=== PATIENT | female | born 1935 | race Caucasian/White ===

== ENCOUNTER 2018-08-10 10:04 | Inpatient (IN) ==
[2018-08-10] MEDS ORDERED: guaiFENesin/DM ER 600-30 MG TABLET PO PRN (13:08)
[2018-08-10] MEDS ORDERED: diphenhydrAMINE CAP 25 MG CAPSULE PO PRN (13:08)
[2018-08-10] MEDS ORDERED: MAGNESIUM SULF RIDER 2 GM in PREMIX 1 EACH IV PRN (13:08)
[2018-08-10] MEDS ORDERED: ONDANSETRON 4 MG/2 ML VIAL IV PRN (13:08)
[2018-08-10] MEDS ORDERED: MORPHINE 4 MG/1 ML VIAL IV PRN (13:08)
[2018-08-10] MEDS ORDERED: POTASSIUM CHLORIDE 20 MEQ TABLET PO PRN (13:08)
[2018-08-10] MEDS ORDERED: PROMETHAZINE 25 MG TABLET PO PRN (13:08)
[2018-08-10] MEDS ORDERED: MAGNESIUM SULF RIDER 4 GM in PREMIX 1 EACH IV PRN (13:08)
[2018-08-10] MEDS ORDERED: BISACODYL 5 MG TABLET PO PRN (13:08)
[2018-08-10] MEDS ORDERED: DIGOXIN 0.5 MG/2 ML AMP IV ONE (13:42)
[2018-08-10 13:58] LABS: Basophils % 0.2 % (0.0-0.8); Hematocrit 41.8 VOL% (35.7-47.0); Hemoglobin 13.8 GM/DL (12.0-16.0); Immature Granulocytes % 1.5 %; Immature Granulocytes Absolute 0.18 #; Lymphocytes # 0.5 10*3/uL (1.4-4.0); Lymphocytes % 4.3 % (21.3-54.2); Mean Corpuscular Hemoglobin 30 PG (27-34); Mean Corpuscular Volume 89.9 FL (87-102); Mean Platelet Volume 10.1 FL (9.6-12.0); Monocytes # 1.4 10*3/uL (0.11-0.8); Monocytes % 12.3 % (1.7-12.7); Neutrophils # 9.5 10*3/uL (1.4-7.4); Neutrophils % 81.7 % (38.7-73.9); Platelet Count 217 T/CUMM (130-400); Red Blood Count 4.65 MC/CUMM (3.8-5.5); Red Cell Distribution Width 14.1 % (9.3-17.3); White Blood Count 11.7 T/CUMM (4-12)
[2018-08-10] MEDS ORDERED: dilTIAZem Drip 125 MG/125 ML PREMIX IV SCH (14:00)
[2018-08-10 14:20] LABS: Albumin 1.9 G/DL (3.4-5.0); Calcium 8.8 MG/DL (8.5-10.1); Osmolality,Calculated 264.1 MOS/KG (273-304); Potassium 4.4 MMOL/L (3.5-5.1); Total Protein 6.3 G/DL (6.4-8.3)
[2018-08-10 14:23] LABS: Troponin I < 0.015 NG/ML (0.00-0.045)
[2018-08-10] MEDS ORDERED: PHENYLEPHRINE 50 MG/5 ML VIAL IV PRN (14:27)
[2018-08-10] MEDS ORDERED: PHENYLEPHRINE DRIP 40 MG/250 ML PREMIX IV PRN (14:30)
[2018-08-10] MEDS ORDERED: AMIODARONE INJ 450 MG in DEXTROSE 5% 241 ML IV SCH ×2 (15:00→16:00)
[2018-08-10 15:56] LABS: Band Neutrophils 2 % (0-10); Lymphocytes 4 % (20-55); Segmented Neutrophils 81 % (50-85); Total Cells Counted 100
[2018-08-10 15:57] LABS: Burr Cells Few; Hypochromasia Slight
[2018-08-10 15:58] LABS: Platelet Estimate Adequate
[2018-08-10] MEDS ORDERED: AMIODARONE INJ 150 MG in DEXTROSE 5% 100 ML IV ONE (15:59)
[2018-08-10 16:04] LABS: Risk Ratio 4.46; Thyroid Stimulating Hormone 1.19 uIU/ml (0.358-3.74); VLDL CHOLESTEROL 13.2 MG/DL
[2018-08-10] MEDS: FUROSEMIDE 40 MG/4 ML VIAL IV SCH (16:55)
[2018-08-11] MEDS ORDERED: DIGOXIN 0.5 MG/2 ML AMP IV ONE ×2 (00:01→12:41)
[2018-08-11] MEDS: AMIODARONE INJ 450 MG in DEXTROSE 5% 241 ML IV SCH ×2 (00:35→16:08)
[2018-08-11] MEDS: dilTIAZem Drip 125 MG/125 ML PREMIX IV SCH ×3 (00:53→20:02)
[2018-08-11 05:31] LABS: Basophils % 0.3 % (0.0-0.8); Hematocrit 39.6 VOL% (35.7-47.0); Hemoglobin 13.3 GM/DL (12.0-16.0); Immature Granulocytes % 5.3 %; Immature Granulocytes Absolute 0.54 #; Lymphocytes # 0.5 10*3/uL (1.4-4.0); Lymphocytes % 5.3 % (21.3-54.2); Mean Corpuscular HGB Conc 33.6 GM/DL (32-36); Mean Corpuscular Hemoglobin 30 PG (27-34); Mean Corpuscular Volume 88.2 FL (87-102); Mean Platelet Volume 10.2 FL (9.6-12.0); Monocytes # 1.5 10*3/uL (0.11-0.8); Monocytes % 14.7 % (1.7-12.7); Neutrophils # 7.7 10*3/uL (1.4-7.4); Neutrophils % 74.4 % (38.7-73.9); Platelet Count 184 T/CUMM (130-400); Red Blood Count 4.49 MC/CUMM (3.8-5.5); Red Cell Distribution Width 13.8 % (9.3-17.3); White Blood Count 10.3 T/CUMM (4-12)
[2018-08-11 05:49] LABS: Calcium 8.5 MG/DL (8.5-10.1); Osmolality,Calculated 266.7 MOS/KG (273-304); Potassium 3.9 MMOL/L (3.5-5.1)
[2018-08-11 06:10] LABS: Band Neutrophils 4 % (0-10); Lymphocytes 2 % (20-55); Segmented Neutrophils 82 % (50-85); Total Cells Counted 100
[2018-08-11 06:11] LABS: Hypochromasia 1+; Microcytosis Slight; Platelet Estimate Adequate
[2018-08-11 06:31] LABS: Apearance,Urine CLEAR (Clear); Bacteria,Urine Occasional /HPF (Few); Bilirubin,Urine Negative (Negative); Blood, Urine Moderate mg/dL (Negative); Glucose,Urine (UA) Negative (Negative); Ketones,Urine Negative (Negative); Mucus,Urine Occasional /LPF (Occasional); Nitrite,Urine Negative (Negative); Protein,Urine Negative; RBC,Urine 7 /HPF (0-4); Squamous Epithelial Cell,Urine Occasional /HPF (0-10); Urine Color Yellow (Yellow); Urine Specific Gravity 1.013 (1.001-1.035); WBC,Urine 1 /HPF (0-6)
[2018-08-11] MEDS ORDERED: ACETAMINOPHEN 325 MG TABLET PO PRN (07:46)
[2018-08-11] MEDS: FUROSEMIDE 40 MG/4 ML VIAL IV SCH ×2 (08:15→17:41)
[2018-08-11] MEDS: PANTOPRAZOLE 40 MG TABLET PO SCH (08:30)
[2018-08-11] MEDS: ASPIRIN EC 81 MG TABLET PO SCH (08:30)
[2018-08-11] MEDS: APIXABAN 5 MG TABLET PO SCH ×2 (08:30→20:25)
[2018-08-11] MEDS: POTASSIUM CHLORIDE 20 MEQ TABLET PO SCH ×2 (09:16→20:25)
[2018-08-11] MEDS: ASCORBIC ACID 500 MG TABLET PO SCH ×2 (09:16→20:25)
[2018-08-11] MEDS: ALUMINUM/MAGNES/SIMETH MAX STR 30 ML UDCUP PO PRN (10:28)
[2018-08-11] MEDS ORDERED: AMIODARONE INJ 150 MG in DEXTROSE 5% 100 ML IV ONE (14:21)
[2018-08-11] MEDS: PHENYLEPHRINE DRIP 40 MG/250 ML PREMIX IV PRN (16:09)
[2018-08-12] MEDS: dilTIAZem Drip 125 MG/125 ML PREMIX IV SCH ×3 (02:36→11:38)
[2018-08-12 04:01] LABS: Calcium 8.2 MG/DL (8.5-10.1); Osmolality,Calculated 269.4 MOS/KG (273-304); Potassium 3.8 MMOL/L (3.5-5.1)
[2018-08-12] MEDS: PHENYLEPHRINE DRIP 40 MG/250 ML PREMIX IV PRN ×3 (05:21→21:31)
[2018-08-12] MEDS: AMIODARONE INJ 450 MG in DEXTROSE 5% 241 ML IV SCH ×3 (07:44→22:57)
[2018-08-12] MEDS: FUROSEMIDE 40 MG/4 ML VIAL IV SCH ×2 (07:45→16:43)
[2018-08-12] MEDS: ASCORBIC ACID 500 MG TABLET PO SCH ×2 (08:04→20:19)
[2018-08-12] MEDS: ASPIRIN EC 81 MG TABLET PO SCH (08:04)
[2018-08-12] MEDS: DOCUSATE SODIUM 100 MG CAPSULE PO PRN (08:04)
[2018-08-12] MEDS: PANTOPRAZOLE 40 MG TABLET PO SCH (08:04)
[2018-08-12] MEDS: POTASSIUM CHLORIDE 20 MEQ TABLET PO SCH ×2 (08:05→20:19)
[2018-08-12] MEDS: APIXABAN 5 MG TABLET PO SCH ×2 (08:05→20:19)
[2018-08-12] MEDS: POLYETHYLENE GLYCOL POWDER 17 GM PACK PO SCH (09:10)
[2018-08-13] MEDS: ALUMINUM/MAGNES/SIMETH MAX STR 30 ML UDCUP PO PRN (00:31)
[2018-08-13] MEDS: PHENYLEPHRINE DRIP 40 MG/250 ML PREMIX IV PRN ×2 (04:22→17:43)
[2018-08-13] MEDS: dilTIAZem Drip 125 MG/125 ML PREMIX IV SCH ×4 (04:23→21:24)
[2018-08-13 05:12] LABS: Calcium 8.4 MG/DL (8.5-10.1); Osmolality,Calculated 265.4 MOS/KG (273-304); Potassium 3.9 MMOL/L (3.5-5.1)
[2018-08-13] MEDS: FUROSEMIDE 40 MG/4 ML VIAL IV SCH ×2 (08:44→15:54)
[2018-08-13] MEDS: ASPIRIN EC 81 MG TABLET PO SCH (08:44)
[2018-08-13] MEDS: PANTOPRAZOLE 40 MG TABLET PO SCH (08:45)
[2018-08-13] MEDS: ASCORBIC ACID 500 MG TABLET PO SCH ×2 (08:45→20:15)
[2018-08-13] MEDS: POLYETHYLENE GLYCOL POWDER 17 GM PACK PO SCH (08:45)
[2018-08-13] MEDS: POTASSIUM CHLORIDE 20 MEQ TABLET PO SCH ×2 (08:45→20:15)
[2018-08-13] MEDS: APIXABAN 5 MG TABLET PO SCH ×2 (08:45→20:15)
[2018-08-13] MEDS: AMIODARONE INJ 450 MG in DEXTROSE 5% 241 ML IV SCH ×2 (13:34→16:35)
[2018-08-13] MEDS: DOCUSATE SODIUM 100 MG CAPSULE PO PRN (20:13)
[2018-08-14] MEDS: dilTIAZem Drip 125 MG/125 ML PREMIX IV SCH ×2 (02:41→05:12)
[2018-08-14 04:37] LABS: Calcium 8.2 MG/DL (8.5-10.1); Osmolality,Calculated 263.7 MOS/KG (273-304); Potassium 4.1 MMOL/L (3.5-5.1)
[2018-08-14] MEDS: AMIODARONE INJ 450 MG in DEXTROSE 5% 241 ML IV SCH ×2 (05:09→07:46)
[2018-08-14] MEDS ORDERED: MIDAZOLAM 2 MG/2 ML VIAL ONE ×2 (08:02→08:46)
[2018-08-14] MEDS: FUROSEMIDE 40 MG/4 ML VIAL IV SCH (08:13)
[2018-08-14] MEDS: ASPIRIN EC 81 MG TABLET PO SCH (08:16)
[2018-08-14] MEDS: APIXABAN 5 MG TABLET PO SCH ×2 (08:16→20:51)
[2018-08-14] MEDS: PANTOPRAZOLE 40 MG TABLET PO SCH (08:17)
[2018-08-14] MEDS: POLYETHYLENE GLYCOL POWDER 17 GM PACK PO SCH (08:17)
[2018-08-14] MEDS: POTASSIUM CHLORIDE 20 MEQ TABLET PO SCH ×2 (08:17→20:50)
[2018-08-14] MEDS: ASCORBIC ACID 500 MG TABLET PO SCH ×2 (08:17→20:50)
[2018-08-14] MEDS ORDERED: MIDAZOLAM 2 MG/2 ML VIAL IV ONE (08:41)
[2018-08-14] MEDS ORDERED: METOPROLOL SUCCINATE XL 100 MG TABLET PO SCH (09:30)
[2018-08-15] MEDS: AMIODARONE 200 MG TABLET PO SCH ×3 (02:02→20:53)
[2018-08-15] MEDS: AMIODARONE INJ 450 MG in DEXTROSE 5% 241 ML IV SCH ×2 (04:02→20:54)
[2018-08-15 04:49] LABS: Osmolality,Calculated 261.8 MOS/KG (273-304); Potassium 4.5 MMOL/L (3.5-5.1)
[2018-08-15] MEDS: POTASSIUM CHLORIDE 20 MEQ TABLET PO SCH ×2 (09:23→20:53)
[2018-08-15] MEDS: PANTOPRAZOLE 40 MG TABLET PO SCH (09:24)
[2018-08-15] MEDS: ASCORBIC ACID 500 MG TABLET PO SCH ×2 (09:26→20:53)
[2018-08-15] MEDS: METOPROLOL SUCCINATE XL 100 MG TABLET PO SCH ×2 (09:27→20:53)
[2018-08-15] MEDS: ASPIRIN EC 81 MG TABLET PO SCH (09:27)
[2018-08-15] MEDS: APIXABAN 5 MG TABLET PO SCH ×2 (09:28→20:53)
[2018-08-15] MEDS: POLYETHYLENE GLYCOL POWDER 17 GM PACK PO SCH (09:30)
[2018-08-16 03:42] LABS: Basophils # 0.1 10*3/uL (0.0-0.2); Basophils % 0.3 % (0.0-0.8); Eosinophils % 0.1 % (0.00-10.9); Hematocrit 40.7 VOL% (35.7-47.0); Hemoglobin 13.8 GM/DL (12.0-16.0); Immature Granulocytes % 2.1 %; Immature Granulocytes Absolute 0.61 #; Lymphocytes # 0.9 10*3/uL (1.4-4.0); Lymphocytes % 3.2 % (21.3-54.2); Mean Corpuscular HGB Conc 33.9 GM/DL (32-36); Mean Corpuscular Hemoglobin 30 PG (27-34); Mean Corpuscular Volume 87.7 FL (87-102); Mean Platelet Volume 9.3 FL (9.6-12.0); Monocytes # 2.1 10*3/uL (0.11-0.8); Monocytes % 7.2 % (1.7-12.7); Neutrophils # 25.2 10*3/uL (1.4-7.4); Neutrophils % 87.1 % (38.7-73.9); Platelet Count 209 T/CUMM (130-400); Red Blood Count 4.64 MC/CUMM (3.8-5.5); Red Cell Distribution Width 14.1 % (9.3-17.3)
[2018-08-16] MEDS: AMIODARONE INJ 450 MG in DEXTROSE 5% 241 ML IV SCH (04:06)
[2018-08-16 04:09] LABS: Calcium 7.1 MG/DL (8.5-10.1); Osmolality,Calculated 257.1 MOS/KG (273-304)
[2018-08-16 04:36] LABS: Band Neutrophils 2 % (0-10); Lymphocytes 3 % (20-55); Platelet Estimate Normal; Segmented Neutrophils 89 % (50-85); Total Cells Counted 100
[2018-08-16] MEDS: FUROSEMIDE 40 MG/4 ML VIAL IV SCH ×2 (07:51→15:48)
[2018-08-16] MEDS: ASPIRIN EC 81 MG TABLET PO SCH (09:39)
[2018-08-16] MEDS: POLYETHYLENE GLYCOL POWDER 17 GM PACK PO SCH (09:39)
[2018-08-16] MEDS: PANTOPRAZOLE 40 MG TABLET PO SCH (09:40)
[2018-08-16] MEDS: METOPROLOL SUCCINATE XL 100 MG TABLET PO SCH ×2 (09:40→21:44)
[2018-08-16] MEDS: AMIODARONE 200 MG TABLET PO SCH ×2 (09:41→21:44)
[2018-08-16] MEDS: POTASSIUM CHLORIDE 20 MEQ TABLET PO SCH ×2 (09:42→21:44)
[2018-08-16] MEDS: ASCORBIC ACID 500 MG TABLET PO SCH ×2 (09:42→21:44)
[2018-08-16] MEDS: APIXABAN 5 MG TABLET PO SCH ×2 (09:44→21:44)
[2018-08-16] MEDS: LEVOFLOXACIN INJ 500 MG in PREMIX 1 EACH IV SCH (10:05)
[2018-08-17] MEDS: AMIODARONE INJ 450 MG in DEXTROSE 5% 241 ML IV SCH ×2 (03:42→10:58)
[2018-08-17 04:36] LABS: Basophils # 0.1 10*3/uL (0.0-0.2); Basophils % 0.2 % (0.0-0.8); Eosinophils % 0.1 % (0.00-10.9); Hematocrit 39.5 VOL% (35.7-47.0); Hemoglobin 13.1 GM/DL (12.0-16.0); Immature Granulocytes % 1.9 %; Immature Granulocytes Absolute 0.52 #; Lymphocytes # 0.9 10*3/uL (1.4-4.0); Lymphocytes % 3.1 % (21.3-54.2); Mean Corpuscular HGB Conc 33.2 GM/DL (32-36); Mean Corpuscular Hemoglobin 29 PG (27-34); Mean Corpuscular Volume 87.8 FL (87-102); Mean Platelet Volume 9.4 FL (9.6-12.0); Monocytes # 2.1 10*3/uL (0.11-0.8); Monocytes % 7.7 % (1.7-12.7); Neutrophils # 24.3 10*3/uL (1.4-7.4); Platelet Count 208 T/CUMM (130-400); Red Cell Distribution Width 13.8 % (9.3-17.3); White Blood Count 27.9 T/CUMM (4-12)
[2018-08-17 04:54] LABS: Calcium 7.9 MG/DL (8.5-10.1); Osmolality,Calculated 258.9 MOS/KG (273-304); Potassium 4.6 MMOL/L (3.5-5.1)
[2018-08-17 04:58] LABS: Band Neutrophils 1 % (0-10); Hypochromasia 1+; Lymphocytes 3 % (20-55); Segmented Neutrophils 93 % (50-85); Total Cells Counted 100
[2018-08-17 04:59] LABS: Microcytosis Slight
[2018-08-17] MEDS: ASCORBIC ACID 500 MG TABLET PO SCH ×2 (09:07→20:39)
[2018-08-17] MEDS: APIXABAN 5 MG TABLET PO SCH ×2 (09:07→20:40)
[2018-08-17] MEDS: ASPIRIN EC 81 MG TABLET PO SCH (09:07)
[2018-08-17] MEDS: METOPROLOL SUCCINATE XL 100 MG TABLET PO SCH ×3 (09:08→20:42)
[2018-08-17] MEDS: POLYETHYLENE GLYCOL POWDER 17 GM PACK PO SCH (09:08)
[2018-08-17] MEDS: PANTOPRAZOLE 40 MG TABLET PO SCH (09:08)
[2018-08-17] MEDS: AMIODARONE 200 MG TABLET PO SCH ×2 (09:08→20:40)
[2018-08-17] MEDS: POTASSIUM CHLORIDE 20 MEQ TABLET PO SCH ×2 (09:08→20:40)
[2018-08-17] MEDS: FUROSEMIDE 40 MG/4 ML VIAL IV SCH ×2 (09:18→15:58)
[2018-08-17] MEDS: LEVOFLOXACIN INJ 500 MG in PREMIX 1 EACH IV SCH (09:23)
[2018-08-18 03:56] LABS: Basophils % 0.2 % (0.0-0.8); Eosinophils % 0.1 % (0.00-10.9); Hematocrit 39.8 VOL% (35.7-47.0); Hemoglobin 13.4 GM/DL (12.0-16.0); Immature Granulocytes % 1.5 %; Immature Granulocytes Absolute 0.32 #; Lymphocytes # 0.9 10*3/uL (1.4-4.0); Lymphocytes % 4.2 % (21.3-54.2); Mean Corpuscular HGB Conc 33.7 GM/DL (32-36); Mean Corpuscular Hemoglobin 30 PG (27-34); Mean Corpuscular Volume 87.9 FL (87-102); Mean Platelet Volume 9.4 FL (9.6-12.0); Monocytes # 1.8 10*3/uL (0.11-0.8); Monocytes % 8.3 % (1.7-12.7); Neutrophils # 18.3 10*3/uL (1.4-7.4); Neutrophils % 85.7 % (38.7-73.9); Platelet Count 232 T/CUMM (130-400); Red Blood Count 4.53 MC/CUMM (3.8-5.5); Red Cell Distribution Width 13.7 % (9.3-17.3); White Blood Count 21.4 T/CUMM (4-12)
[2018-08-18 04:17] LABS: Lymphocytes 3 % (20-55); Platelet Estimate Normal; Segmented Neutrophils 94 % (50-85); Total Cells Counted 100
[2018-08-18 04:18] LABS: Polychromasia Few
[2018-08-18 04:21] LABS: Calcium 7.9 MG/DL (8.5-10.1); Osmolality,Calculated 255.4 MOS/KG (273-304); Potassium 4.5 MMOL/L (3.5-5.1)
[2018-08-18] MEDS: POLYETHYLENE GLYCOL POWDER 17 GM PACK PO SCH (09:33)
[2018-08-18] MEDS: ASPIRIN EC 81 MG TABLET PO SCH (09:33)
[2018-08-18] MEDS: APIXABAN 5 MG TABLET PO SCH ×2 (09:34→21:18)
[2018-08-18] MEDS: METOPROLOL SUCCINATE XL 100 MG TABLET PO SCH ×2 (09:34→21:18)
[2018-08-18] MEDS: ASCORBIC ACID 500 MG TABLET PO SCH ×2 (09:34→21:18)
[2018-08-18] MEDS: FUROSEMIDE 40 MG/4 ML VIAL IV SCH ×2 (09:34→15:17)
[2018-08-18] MEDS: PANTOPRAZOLE 40 MG TABLET PO SCH (09:34)
[2018-08-18] MEDS: POTASSIUM CHLORIDE 20 MEQ TABLET PO SCH ×2 (09:34→21:18)
[2018-08-18] MEDS: AMIODARONE 200 MG TABLET PO SCH ×3 (09:34→21:18)
[2018-08-18] MEDS: LEVOFLOXACIN INJ 500 MG in PREMIX 1 EACH IV SCH (09:47)
[2018-08-18] MEDS ORDERED: DIGOXIN 0.25 MG TABLET PO SCH (13:00)
[2018-08-19 02:47] LABS: Apearance,Urine Slightly Hazy (Clear); Bacteria,Urine Occasional /HPF (Few); Bilirubin,Urine Negative (Negative); Blood, Urine Negative (Negative); Glucose,Urine (UA) Negative (Negative); Ketones,Urine Negative (Negative); Mucus,Urine Occasional /LPF (Occasional); Nitrite,Urine Negative (Negative); Protein,Urine Negative; RBC,Urine 2 /HPF (0-4); Renal Epithelial Cells,Urine Occasional /HPF (<1); Squamous Epithelial Cell,Urine Occasional /HPF (0-10); Urine Color Yellow (Yellow); Urine Specific Gravity 1.015 (1.001-1.035); WBC,Urine 2 /HPF (0-6)
[2018-08-19 05:08] LABS: Basophils % 0.2 % (0.0-0.8); Eosinophils % 0.2 % (0.00-10.9); Hemoglobin 12.9 GM/DL (12.0-16.0); Immature Granulocytes % 1.1 %; Immature Granulocytes Absolute 0.19 #; Lymphocytes # 0.8 10*3/uL (1.4-4.0); Lymphocytes % 4.6 % (21.3-54.2); Mean Corpuscular HGB Conc 33.1 GM/DL (32-36); Mean Corpuscular Hemoglobin 29 PG (27-34); Mean Corpuscular Volume 88.4 FL (87-102); Mean Platelet Volume 9.8 FL (9.6-12.0); Monocytes # 1.6 10*3/uL (0.11-0.8); Monocytes % 9.4 % (1.7-12.7); Neutrophils # 14.6 10*3/uL (1.4-7.4); Neutrophils % 84.5 % (38.7-73.9); Platelet Count 288 T/CUMM (130-400); Red Blood Count 4.41 MC/CUMM (3.8-5.5); Red Cell Distribution Width 13.8 % (9.3-17.3); White Blood Count 17.2 T/CUMM (4-12)
[2018-08-19 05:31] LABS: Hypochromasia Slight; Lymphocytes 2 % (20-55); Platelet Estimate Adequate; Segmented Neutrophils 93 % (50-85); Total Cells Counted 100
[2018-08-19 05:32] LABS: Microcytosis Slight
[2018-08-19 05:35] LABS: Osmolality,Calculated 261.8 MOS/KG (273-304); Potassium 4.3 MMOL/L (3.5-5.1)
[2018-08-19] MEDS: ASCORBIC ACID 500 MG TABLET PO SCH ×2 (08:37→21:07)
[2018-08-19] MEDS: POTASSIUM CHLORIDE 20 MEQ TABLET PO SCH ×2 (08:38→21:07)
[2018-08-19] MEDS: AMIODARONE 200 MG TABLET PO SCH ×3 (08:38→21:07)
[2018-08-19] MEDS: ASPIRIN EC 81 MG TABLET PO SCH (08:38)
[2018-08-19] MEDS: PANTOPRAZOLE 40 MG TABLET PO SCH (08:39)
[2018-08-19] MEDS: APIXABAN 5 MG TABLET PO SCH ×2 (08:39→21:07)
[2018-08-19] MEDS: METOPROLOL SUCCINATE XL 100 MG TABLET PO SCH ×2 (08:39→22:47)
[2018-08-19] MEDS: POLYETHYLENE GLYCOL POWDER 17 GM PACK PO SCH (08:45)
[2018-08-19] MEDS: FUROSEMIDE 40 MG/4 ML VIAL IV SCH ×2 (08:46→15:40)
[2018-08-19] MEDS: LEVOFLOXACIN INJ 500 MG in PREMIX 1 EACH IV SCH (09:02)
[2018-08-19] MEDS: DIGOXIN 0.125 MG TABLET PO SCH (12:53)
[2018-08-19] MEDS: ZALEPLON 5 MG CAPSULE PO PRN (21:07)
[2018-08-20 04:29] LABS: Basophils % 0.2 % (0.0-0.8); Eosinophils % 0.2 % (0.00-10.9); Hematocrit 35.9 VOL% (35.7-47.0); Immature Granulocytes % 0.9 %; Immature Granulocytes Absolute 0.13 #; Lymphocytes # 0.8 10*3/uL (1.4-4.0); Lymphocytes % 5.2 % (21.3-54.2); Mean Corpuscular HGB Conc 33.4 GM/DL (32-36); Mean Corpuscular Hemoglobin 30 PG (27-34); Mean Corpuscular Volume 88.6 FL (87-102); Mean Platelet Volume 9.5 FL (9.6-12.0); Monocytes # 1.4 10*3/uL (0.11-0.8); Neutrophils # 11.9 10*3/uL (1.4-7.4); Neutrophils % 83.5 % (38.7-73.9); Platelet Count 285 T/CUMM (130-400); Red Blood Count 4.05 MC/CUMM (3.8-5.5); Red Cell Distribution Width 13.7 % (9.3-17.3); White Blood Count 14.3 T/CUMM (4-12)
[2018-08-20 04:55] LABS: Calcium 7.7 MG/DL (8.5-10.1); Osmolality,Calculated 264.7 MOS/KG (273-304); Potassium 3.8 MMOL/L (3.5-5.1)
[2018-08-20] MEDS: ASPIRIN EC 81 MG TABLET PO SCH (08:22)
[2018-08-20] MEDS: AMIODARONE 200 MG TABLET PO SCH ×3 (08:22→21:06)
[2018-08-20] MEDS: PANTOPRAZOLE 40 MG TABLET PO SCH (08:22)
[2018-08-20] MEDS: POTASSIUM CHLORIDE 20 MEQ TABLET PO SCH ×2 (08:22→21:06)
[2018-08-20] MEDS: APIXABAN 5 MG TABLET PO SCH ×2 (08:23→21:06)
[2018-08-20] MEDS: METOPROLOL SUCCINATE XL 100 MG TABLET PO SCH ×2 (08:23→21:06)
[2018-08-20] MEDS: ASCORBIC ACID 500 MG TABLET PO SCH ×2 (08:23→21:06)
[2018-08-20] MEDS: FUROSEMIDE 40 MG/4 ML VIAL IV SCH (08:23)
[2018-08-20] MEDS: LEVOFLOXACIN INJ 500 MG in PREMIX 1 EACH IV SCH (08:27)
[2018-08-20] MEDS: POLYETHYLENE GLYCOL POWDER 17 GM PACK PO SCH (11:12)
[2018-08-20] MEDS: ACETAMINOPHEN 325 MG TABLET PO PRN ×2 (11:13→21:12)
[2018-08-20] MEDS: DIGOXIN 0.125 MG TABLET PO SCH (13:06)
[2018-08-20] MEDS: FUROSEMIDE 40 MG TABLET PO SCH (15:47)
[2018-08-20] MEDS: ZALEPLON 5 MG CAPSULE PO PRN (21:13)
[2018-08-21 05:34] LABS: Basophils % 0.2 % (0.0-0.8); Eosinophils % 0.1 % (0.00-10.9); Hemoglobin 12.3 GM/DL (12.0-16.0); Immature Granulocytes % 0.9 %; Immature Granulocytes Absolute 0.18 #; Lymphocytes # 0.9 10*3/uL (1.4-4.0); Lymphocytes % 4.5 % (21.3-54.2); Mean Corpuscular HGB Conc 33.2 GM/DL (32-36); Mean Corpuscular Hemoglobin 29 PG (27-34); Mean Corpuscular Volume 88.5 FL (87-102); Mean Platelet Volume 9.5 FL (9.6-12.0); Monocytes # 1.8 10*3/uL (0.11-0.8); Monocytes % 9.2 % (1.7-12.7); Neutrophils # 16.7 10*3/uL (1.4-7.4); Neutrophils % 85.1 % (38.7-73.9); Platelet Count 287 T/CUMM (130-400); Red Blood Count 4.18 MC/CUMM (3.8-5.5); Red Cell Distribution Width 13.7 % (9.3-17.3); White Blood Count 19.6 T/CUMM (4-12)
[2018-08-21 05:52] LABS: Calcium 7.9 MG/DL (8.5-10.1); Osmolality,Calculated 263.8 MOS/KG (273-304)
[2018-08-21 07:30] LABS: Eosinophils 1 % (0-10); Lymphocytes 4 % (20-55); Segmented Neutrophils 88 % (50-85); Total Cells Counted 100
[2018-08-21 07:31] LABS: Hypochromasia Slight; Platelet Estimate Normal
[2018-08-21] MEDS: PANTOPRAZOLE 40 MG TABLET PO SCH (09:03)
[2018-08-21] MEDS: ASPIRIN EC 81 MG TABLET PO SCH (09:04)
[2018-08-21] MEDS: POTASSIUM CHLORIDE 20 MEQ TABLET PO SCH ×2 (09:04→21:08)
[2018-08-21] MEDS: AMIODARONE 200 MG TABLET PO SCH ×3 (09:04→21:08)
[2018-08-21] MEDS: FUROSEMIDE 40 MG TABLET PO SCH ×2 (09:05→16:16)
[2018-08-21] MEDS: APIXABAN 5 MG TABLET PO SCH ×2 (09:05→21:08)
[2018-08-21] MEDS: METOPROLOL SUCCINATE XL 100 MG TABLET PO SCH ×2 (09:06→21:08)
[2018-08-21] MEDS: LEVOFLOXACIN INJ 500 MG in PREMIX 1 EACH IV SCH (09:13)
[2018-08-21] MEDS: POLYETHYLENE GLYCOL POWDER 17 GM PACK PO SCH (10:04)
[2018-08-21] MEDS: ASCORBIC ACID 500 MG TABLET PO SCH ×2 (10:07→21:08)
[2018-08-21] MEDS: DIGOXIN 0.125 MG TABLET PO SCH (12:54)
[2018-08-21] MEDS: cefTRIAXone 1,000 MG in SYRINGE 1 EACH IV SCH (17:38)
[2018-08-21] MEDS: ZALEPLON 5 MG CAPSULE PO PRN (21:13)
[2018-08-21] MEDS: PHENYLEPHRINE 0.25% SUPP RECTAL PRN (21:23)
[2018-08-22 05:08] LABS: Basophils % 0.3 % (0.0-0.8); Eosinophils % 0.3 % (0.00-10.9); Hematocrit 37.4 VOL% (35.7-47.0); Hemoglobin 12.4 GM/DL (12.0-16.0); Immature Granulocytes % 0.8 %; Immature Granulocytes Absolute 0.11 #; Lymphocytes % 7.7 % (21.3-54.2); Mean Corpuscular HGB Conc 33.2 GM/DL (32-36); Mean Corpuscular Hemoglobin 29 PG (27-34); Mean Corpuscular Volume 88.4 FL (87-102); Mean Platelet Volume 9.5 FL (9.6-12.0); Monocytes # 1.3 10*3/uL (0.11-0.8); Monocytes % 9.7 % (1.7-12.7); Neutrophils % 81.2 % (38.7-73.9); Platelet Count 319 T/CUMM (130-400); Red Blood Count 4.23 MC/CUMM (3.8-5.5); White Blood Count 13.6 T/CUMM (4-12)
[2018-08-22 05:40] LABS: Calcium 7.9 MG/DL (8.5-10.1); Osmolality,Calculated 260.8 MOS/KG (273-304); Potassium 4.2 MMOL/L (3.5-5.1)
[2018-08-22] MEDS ORDERED: MAGNESIUM SULF RIDER 2 GM in PREMIX 1 EACH IV PRN (08:03)
[2018-08-22] MEDS ORDERED: POTASSIUM CHLORIDE RIDER 10 MEQ in PREMIX 1 EACH IV PRN (08:03)
[2018-08-22] MEDS: METOPROLOL SUCCINATE XL 100 MG TABLET PO SCH ×2 (09:08→21:28)
[2018-08-22] MEDS: ASCORBIC ACID 500 MG TABLET PO SCH ×2 (09:08→21:27)
[2018-08-22] MEDS: AMIODARONE 200 MG TABLET PO SCH ×3 (09:08→21:28)
[2018-08-22] MEDS: POTASSIUM CHLORIDE 20 MEQ TABLET PO SCH ×2 (09:08→21:28)
[2018-08-22] MEDS: ASPIRIN EC 81 MG TABLET PO SCH (09:08)
[2018-08-22] MEDS: POLYETHYLENE GLYCOL POWDER 17 GM PACK PO SCH (09:09)
[2018-08-22] MEDS: APIXABAN 5 MG TABLET PO SCH (09:09)
[2018-08-22] MEDS: FUROSEMIDE 40 MG TABLET PO SCH ×3 (09:09→18:24)
[2018-08-22] MEDS: PANTOPRAZOLE 40 MG TABLET PO SCH (09:09)
[2018-08-22] MEDS: diphenhydrAMINE CAP 25 MG CAPSULE PO SCH ×2 (10:35→21:28)
[2018-08-22] MEDS: methylPREDNISolone SOD SUC 125 MG/2 ML VIAL IV SCH ×2 (11:17→21:29)
[2018-08-22] MEDS: FAMOTIDINE 20 MG TABLET PO SCH ×2 (11:17→21:28)
[2018-08-22] MEDS: DIGOXIN 0.125 MG TABLET PO SCH (13:15)
[2018-08-22] MEDS: cefTRIAXone 1,000 MG in SYRINGE 1 EACH IV SCH (18:37)
[2018-08-22] MEDS: ROSUVASTATIN 20 MG TABLET PO SCH (21:27)
[2018-08-23 05:30] LABS: Basophils % 0.1 % (0.0-0.8); Hematocrit 39.5 VOL% (35.7-47.0); Hemoglobin 13.3 GM/DL (12.0-16.0); Immature Granulocytes % 0.5 %; Immature Granulocytes Absolute 0.04 #; Lymphocytes # 0.3 10*3/uL (1.4-4.0); Lymphocytes % 4.3 % (21.3-54.2); Mean Corpuscular HGB Conc 33.7 GM/DL (32-36); Mean Corpuscular Hemoglobin 30 PG (27-34); Mean Platelet Volume 9.3 FL (9.6-12.0); Monocytes # 0.1 10*3/uL (0.11-0.8); Monocytes % 0.9 % (1.7-12.7); Neutrophils # 7.4 10*3/uL (1.4-7.4); Neutrophils % 94.2 % (38.7-73.9); Platelet Count 339 T/CUMM (130-400); Red Blood Count 4.49 MC/CUMM (3.8-5.5); Red Cell Distribution Width 13.9 % (9.3-17.3); White Blood Count 7.9 T/CUMM (4-12)
[2018-08-23 05:54] LABS: Lymphocytes 5 % (20-55); Platelet Estimate Adequate; Segmented Neutrophils 94 % (50-85); Total Cells Counted 100
[2018-08-23 05:55] LABS: Hypochromasia 1+
[2018-08-23 05:58] LABS: Calcium 8.3 MG/DL (8.5-10.1); Osmolality,Calculated 270.4 MOS/KG (273-304); Potassium 4.6 MMOL/L (3.5-5.1)
[2018-08-23] MEDS ORDERED: HEPARIN/NACL 0.9% 2 UNITS/ML 1,000 ML IV ONE (06:37)
[2018-08-23] MEDS ORDERED: LIDOCAINE 1% 20 ML VIAL ONE (06:37)
[2018-08-23] MEDS: METOPROLOL SUCCINATE XL 100 MG TABLET PO SCH ×3 (06:50→22:04)
[2018-08-23] MEDS: ASPIRIN EC 81 MG TABLET PO SCH ×2 (06:50→09:38)
[2018-08-23] MEDS ORDERED: HYDROmorphone 2 MG/1 ML VIAL ONE (06:57)
[2018-08-23] MEDS ORDERED: MIDAZOLAM 2 MG/2 ML VIAL ONE (06:57)
[2018-08-23] MEDS ORDERED: SODIUM CHLORIDE 0.9% 1,000 ML IV SCH (08:00)
[2018-08-23] MEDS: FUROSEMIDE 40 MG TABLET PO SCH ×2 (09:36→17:16)
[2018-08-23] MEDS: POTASSIUM CHLORIDE 20 MEQ TABLET PO SCH ×2 (09:36→22:04)
[2018-08-23] MEDS: FAMOTIDINE 20 MG TABLET PO SCH ×2 (09:36→22:04)
[2018-08-23] MEDS: PANTOPRAZOLE 40 MG TABLET PO SCH (09:37)
[2018-08-23] MEDS: ASCORBIC ACID 500 MG TABLET PO SCH ×2 (09:37→22:03)
[2018-08-23] MEDS: AMIODARONE 200 MG TABLET PO SCH ×4 (09:38→22:04)
[2018-08-23] MEDS: POLYETHYLENE GLYCOL POWDER 17 GM PACK PO SCH (09:38)
[2018-08-23] MEDS: methylPREDNISolone SOD SUC 125 MG/2 ML VIAL IV SCH ×2 (09:38→22:01)
[2018-08-23] MEDS ORDERED: VANCOMYCIN 500 MG VIAL IRRIG ONE (12:43)
[2018-08-23] MEDS ORDERED: VANCOMYCIN INJ 1,000 MG in SODIUM CHLORIDE 0.9% 250 ML IV ONE (12:43)
[2018-08-23] MEDS: DIGOXIN 0.125 MG TABLET PO SCH (13:47)
[2018-08-23] MEDS: cefTRIAXone 1,000 MG in SYRINGE 1 EACH IV SCH (17:16)
[2018-08-23] MEDS: ROSUVASTATIN 20 MG TABLET PO SCH (22:04)
[2018-08-24 04:51] LABS: Basophils % 0.1 % (0.0-0.8); Hemoglobin 12.8 GM/DL (12.0-16.0); Immature Granulocytes % 1.1 %; Immature Granulocytes Absolute 0.14 #; Lymphocytes # 0.5 10*3/uL (1.4-4.0); Lymphocytes % 3.8 % (21.3-54.2); Mean Corpuscular HGB Conc 32.8 GM/DL (32-36); Mean Corpuscular Hemoglobin 29 PG (27-34); Mean Corpuscular Volume 89.7 FL (87-102); Mean Platelet Volume 9.2 FL (9.6-12.0); Monocytes # 0.2 10*3/uL (0.11-0.8); Monocytes % 1.7 % (1.7-12.7); Neutrophils # 11.8 10*3/uL (1.4-7.4); Neutrophils % 93.3 % (38.7-73.9); Platelet Count 341 T/CUMM (130-400); Red Blood Count 4.35 MC/CUMM (3.8-5.5); Red Cell Distribution Width 14.1 % (9.3-17.3); White Blood Count 12.7 T/CUMM (4-12)
[2018-08-24 05:24] LABS: Calcium 8.4 MG/DL (8.5-10.1); Osmolality,Calculated 277.8 MOS/KG (273-304); Potassium 4.6 MMOL/L (3.5-5.1)
[2018-08-24 05:26] LABS: Calcium 8.1 MG/DL (8.5-10.1); Potassium 4.6 MMOL/L (3.5-5.1)
[2018-08-24 05:53] LABS: Hypochromasia 1+; Lymphocytes 2 % (20-55); Microcytosis 1+; Segmented Neutrophils 97 % (50-85); Total Cells Counted 100
[2018-08-24] MEDS ORDERED: diphenhydrAMINE 50 MG/1 ML VIAL IV ONE (08:00)
[2018-08-24] MEDS: FUROSEMIDE 40 MG TABLET PO SCH ×2 (08:05→10:04)
[2018-08-24] MEDS: methylPREDNISolone SOD SUC 125 MG/2 ML VIAL IV SCH ×2 (09:39→21:28)
[2018-08-24] MEDS: ASPIRIN EC 81 MG TABLET PO SCH (10:03)
[2018-08-24] MEDS: AMIODARONE 200 MG TABLET PO SCH (10:03)
[2018-08-24] MEDS: DILTIAZEM CD 120 MG CAPSULE PO SCH (10:03)
[2018-08-24] MEDS: POTASSIUM CHLORIDE 20 MEQ TABLET PO SCH ×2 (10:03→21:28)
[2018-08-24] MEDS: POLYETHYLENE GLYCOL POWDER 17 GM PACK PO SCH (10:04)
[2018-08-24] MEDS: METOPROLOL SUCCINATE XL 100 MG TABLET PO SCH ×2 (10:04→21:28)
[2018-08-24] MEDS: ASCORBIC ACID 500 MG TABLET PO SCH ×2 (10:04→21:28)
[2018-08-24] MEDS: FAMOTIDINE 20 MG TABLET PO SCH ×2 (10:04→21:28)
[2018-08-24] MEDS: PANTOPRAZOLE 40 MG TABLET PO SCH (10:04)
[2018-08-24] MEDS: DESITIN 4OZ/NYSTATIN 15 GRAM MIXTURE PASTE TOP SCH ×2 (10:29→21:29)
[2018-08-24] MEDS: DIGOXIN 0.125 MG TABLET PO SCH (14:29)
[2018-08-24] MEDS: PHENYLEPHRINE 0.25% SUPP RECTAL PRN (21:23)
[2018-08-24] MEDS: ROSUVASTATIN 20 MG TABLET PO SCH (21:28)
[2018-08-25 05:14] LABS: Basophils % 0.1 % (0.0-0.8); Hematocrit 38.1 VOL% (35.7-47.0); Hemoglobin 12.3 GM/DL (12.0-16.0); Immature Granulocytes % 0.9 %; Immature Granulocytes Absolute 0.08 #; Lymphocytes # 0.4 10*3/uL (1.4-4.0); Lymphocytes % 4.8 % (21.3-54.2); Mean Corpuscular HGB Conc 32.3 GM/DL (32-36); Mean Corpuscular Hemoglobin 29 PG (27-34); Mean Corpuscular Volume 90.5 FL (87-102); Mean Platelet Volume 9.3 FL (9.6-12.0); Monocytes # 0.3 10*3/uL (0.11-0.8); Monocytes % 2.9 % (1.7-12.7); Neutrophils # 7.9 10*3/uL (1.4-7.4); Neutrophils % 91.3 % (38.7-73.9); Platelet Count 310 T/CUMM (130-400); Red Blood Count 4.21 MC/CUMM (3.8-5.5); Red Cell Distribution Width 14.3 % (9.3-17.3); White Blood Count 8.7 T/CUMM (4-12)
[2018-08-25 05:23] LABS: Osmolality,Calculated 280.8 MOS/KG (273-304); Potassium 4.9 MMOL/L (3.5-5.1)
[2018-08-25 07:26] LABS: Hypochromasia 1+; Lymphocytes 4 % (20-55); Platelet Estimate Adequate; Segmented Neutrophils 92 % (50-85); Total Cells Counted 100
[2018-08-25] MEDS: POLYETHYLENE GLYCOL POWDER 17 GM PACK PO SCH (08:31)
[2018-08-25] MEDS: ASCORBIC ACID 500 MG TABLET PO SCH ×2 (08:32→20:39)
[2018-08-25] MEDS: ASPIRIN EC 81 MG TABLET PO SCH (08:32)
[2018-08-25] MEDS: POTASSIUM CHLORIDE 20 MEQ TABLET PO SCH ×2 (08:32→20:39)
[2018-08-25] MEDS: PANTOPRAZOLE 40 MG TABLET PO SCH (08:32)
[2018-08-25] MEDS: DILTIAZEM CD 120 MG CAPSULE PO SCH (08:32)
[2018-08-25] MEDS: FAMOTIDINE 20 MG TABLET PO SCH ×2 (08:33→20:39)
[2018-08-25] MEDS: AMIODARONE 200 MG TABLET PO SCH (08:33)
[2018-08-25] MEDS: FUROSEMIDE 40 MG TABLET PO SCH (08:33)
[2018-08-25] MEDS: METOPROLOL SUCCINATE XL 100 MG TABLET PO SCH ×2 (08:33→20:39)
[2018-08-25] MEDS: DESITIN 4OZ/NYSTATIN 15 GRAM MIXTURE PASTE TOP SCH ×2 (12:07→20:39)
[2018-08-25] MEDS: DIGOXIN 0.125 MG TABLET PO SCH (14:32)
[2018-08-25] MEDS: PHENYLEPHRINE 0.25% SUPP RECTAL PRN (20:39)
[2018-08-25] MEDS: ROSUVASTATIN 20 MG TABLET PO SCH (20:44)
[2018-08-26 04:27] LABS: Potassium 4.9 MMOL/L (3.5-5.1)
[2018-08-26 05:57] LABS: Basophils % 0.1 % (0.0-0.8); Hematocrit 38.7 VOL% (35.7-47.0); Hemoglobin 12.5 GM/DL (12.0-16.0); Immature Granulocytes % 0.6 %; Immature Granulocytes Absolute 0.07 #; Lymphocytes # 0.9 10*3/uL (1.4-4.0); Lymphocytes % 8.1 % (21.3-54.2); Mean Corpuscular HGB Conc 32.3 GM/DL (32-36); Mean Corpuscular Hemoglobin 29 PG (27-34); Mean Corpuscular Volume 91.1 FL (87-102); Mean Platelet Volume 9.5 FL (9.6-12.0); Monocytes # 1.2 10*3/uL (0.11-0.8); Monocytes % 10.9 % (1.7-12.7); Neutrophils # 8.9 10*3/uL (1.4-7.4); Neutrophils % 80.3 % (38.7-73.9); Platelet Count 297 T/CUMM (130-400); Red Blood Count 4.25 MC/CUMM (3.8-5.5); Red Cell Distribution Width 14.4 % (9.3-17.3); White Blood Count 11.1 T/CUMM (4-12)
[2018-08-26] MEDS: FUROSEMIDE 40 MG TABLET PO SCH (10:27)
[2018-08-26] MEDS: ASPIRIN EC 81 MG TABLET PO SCH (10:27)
[2018-08-26] MEDS: ASCORBIC ACID 500 MG TABLET PO SCH (10:27)
[2018-08-26] MEDS: POTASSIUM CHLORIDE 20 MEQ TABLET PO SCH (10:28)
[2018-08-26] MEDS: AMIODARONE 200 MG TABLET PO SCH (10:28)
[2018-08-26] MEDS: METOPROLOL SUCCINATE XL 100 MG TABLET PO SCH (10:28)
[2018-08-26] MEDS: PANTOPRAZOLE 40 MG TABLET PO SCH (10:28)
[2018-08-26] MEDS: DILTIAZEM CD 120 MG CAPSULE PO SCH (10:28)
[2018-08-26] MEDS: POLYETHYLENE GLYCOL POWDER 17 GM PACK PO SCH (10:29)
[2018-08-26] MEDS: FAMOTIDINE 20 MG TABLET PO SCH (10:29)
[2018-08-26 12:01] VITALS: BP 112/74
== END 2018-08-26 12:18 | disposition swing bed (61) | DRG 286 ==
LOC: N.CC 12:51 → N.TELEN 08-14 17:11
PROVIDERS: ADMIT Internal Medicine Cardiovascular Disease; ATTEND Internal Medicine Cardiovascular Disease
PROC: CLCCHCL (ICD-10-PCS; 2018-08-23 07:15)

== ENCOUNTER 2018-09-14 21:00 | Inpatient (IN) ==
[2018-09-14 22:19] LABS: Apearance,Urine CLOUDY (Clear); Bacteria,Urine Few /HPF (Few); Bilirubin,Urine Negative (Negative); Blood, Urine Negative (Negative); Glucose,Urine (UA) Negative (Negative); Ketones,Urine Negative (Negative); Mucus,Urine Occasional /LPF (Occasional); Nitrite,Urine Positive (Negative); Protein,Urine 30 MG/DL; RBC,Urine 3 /HPF (0-4); Squamous Epithelial Cell,Urine Occasional /HPF (0-10); Urine Color Yellow (Yellow); Urine Specific Gravity 1.013 (1.001-1.035); WBC,Urine 81 /HPF (0-6)
[2018-09-14] MEDS ORDERED: ONDANSETRON 4 MG/2 ML VIAL IV PRN (22:53)
[2018-09-14] MEDS ORDERED: dilTIAZem Drip 125 MG/125 ML PREMIX IV SCH (23:00)
[2018-09-15 06:47] LABS: Basophils % 0.4 % (0.0-0.8); Eosinophils # 0.2 10*3/uL (0.0-0.87); Eosinophils % 3.9 % (0.00-10.9); Hematocrit 34.2 VOL% (35.7-47.0); Hemoglobin 10.6 GM/DL (12.0-16.0); Immature Granulocytes % 0.2 %; Immature Granulocytes Absolute 0.01 #; Lymphocytes # 1.6 10*3/uL (1.4-4.0); Mean Corpuscular Hemoglobin 29 PG (27-34); Mean Platelet Volume 9.2 FL (9.6-12.0); Monocytes # 0.7 10*3/uL (0.11-0.8); Monocytes % 14.5 % (1.7-12.7); Neutrophils # 2.6 10*3/uL (1.4-7.4); Platelet Count 123 T/CUMM (130-400); Red Cell Distribution Width 16.9 % (9.3-17.3); White Blood Count 5.1 T/CUMM (4-12)
[2018-09-15 07:02] LABS: Calcium 7.6 MG/DL (8.5-10.1); Potassium 3.4 MMOL/L (3.5-5.1)
[2018-09-15] MEDS ORDERED: DILTIAZEM CD 120 MG CAPSULE PO SCH (09:00)
[2018-09-15] MEDS ORDERED: METOPROLOL SUCCINATE XL 100 MG TABLET PO SCH (09:00)
[2018-09-15] MEDS ORDERED: FUROSEMIDE 40 MG TABLET PO SCH (09:00)
[2018-09-15] MEDS: POTASSIUM CHLORIDE 20 MEQ TABLET PO PRN ×3 (10:01→14:32)
[2018-09-15] MEDS: AMIODARONE 200 MG TABLET PO SCH (10:02)
[2018-09-15] MEDS: PANTOPRAZOLE 40 MG TABLET PO SCH (10:02)
[2018-09-15] MEDS: ASCORBIC ACID 500 MG TABLET PO SCH ×2 (10:02→21:31)
[2018-09-15] MEDS: ASPIRIN EC 81 MG TABLET PO SCH (10:03)
[2018-09-15] MEDS: DIGOXIN 0.125 MG TABLET PO SCH (14:32)
[2018-09-15] MEDS: ALBUTEROL/IPRATROPIUM 3 ML NEB RESP TX SCH ×2 (20:00→23:42)
[2018-09-15] MEDS: ROSUVASTATIN 20 MG TABLET PO SCH (21:31)
[2018-09-15] MEDS: METOPROLOL SUCCINATE XL 50 MG TABLET PO SCH (21:55)
[2018-09-16] MEDS: ALBUTEROL/IPRATROPIUM 3 ML NEB RESP TX SCH ×6 (03:29→23:13)
[2018-09-16 05:19] LABS: Basophils % 0.3 % (0.0-0.8); Eosinophils # 0.3 10*3/uL (0.0-0.87); Eosinophils % 4.7 % (0.00-10.9); Hematocrit 34.2 VOL% (35.7-47.0); Hemoglobin 10.7 GM/DL (12.0-16.0); Immature Granulocytes % 0.3 %; Immature Granulocytes Absolute 0.02 #; Lymphocytes # 2.4 10*3/uL (1.4-4.0); Lymphocytes % 41.3 % (21.3-54.2); Mean Corpuscular HGB Conc 31.3 GM/DL (32-36); Mean Corpuscular Hemoglobin 30 PG (27-34); Mean Corpuscular Volume 95.5 FL (87-102); Mean Platelet Volume 9.6 FL (9.6-12.0); Monocytes # 0.8 10*3/uL (0.11-0.8); Monocytes % 14.2 % (1.7-12.7); Neutrophils # 2.3 10*3/uL (1.4-7.4); Neutrophils % 39.2 % (38.7-73.9); Platelet Count 142 T/CUMM (130-400); Red Blood Count 3.58 MC/CUMM (3.8-5.5); Red Cell Distribution Width 17.1 % (9.3-17.3); White Blood Count 5.8 T/CUMM (4-12)
[2018-09-16 05:39] LABS: Calcium 7.7 MG/DL (8.5-10.1); Osmolality,Calculated 286.8 MOS/KG (273-304); Potassium 3.7 MMOL/L (3.5-5.1)
[2018-09-16] MEDS: METOPROLOL SUCCINATE XL 50 MG TABLET PO SCH (09:26)
[2018-09-16] MEDS: DOCUSATE SODIUM 100 MG CAPSULE PO SCH ×2 (09:27→21:39)
[2018-09-16] MEDS: PANTOPRAZOLE 40 MG TABLET PO SCH (09:27)
[2018-09-16] MEDS: ASPIRIN EC 81 MG TABLET PO SCH (09:27)
[2018-09-16] MEDS: ASCORBIC ACID 500 MG TABLET PO SCH ×2 (09:27→21:00)
[2018-09-16] MEDS: POTASSIUM CHLORIDE 20 MEQ TABLET PO PRN (09:27)
[2018-09-16] MEDS: NITROFURANTOIN MACRO/MONO 100 MG CAPSULE PO SCH ×2 (09:27→21:39)
[2018-09-16] MEDS: AMIODARONE 200 MG TABLET PO SCH (09:27)
[2018-09-16] MEDS: CHOLECALCIFEROL 1,000 UNIT TABLET PO SCH ×2 (09:28→16:26)
[2018-09-16] MEDS: POLYETHYLENE GLYCOL POWDER 17 GM PACK PO SCH (09:29)
[2018-09-16] MEDS: FUROSEMIDE 40 MG/4 ML VIAL IV SCH (10:44)
[2018-09-16] MEDS: METOPROLOL SUCCINATE XL 25 MG TABLET PO SCH ×2 (12:12→21:39)
[2018-09-16] MEDS: DIGOXIN 0.125 MG TABLET PO SCH (14:27)
[2018-09-16] MEDS: MULTIVITAMIN (BEROCCA) TABLET PO SCH (16:28)
[2018-09-16] MEDS ORDERED: FUROSEMIDE 40 MG/4 ML VIAL IV SCH (17:05)
[2018-09-16] MEDS: ROSUVASTATIN 20 MG TABLET PO SCH (21:39)
[2018-09-17] MEDS: ALBUTEROL/IPRATROPIUM 3 ML NEB RESP TX SCH ×4 (02:22→15:10)
[2018-09-17 05:19] LABS: Basophils % 0.5 % (0.0-0.8); Eosinophils # 0.2 10*3/uL (0.0-0.87); Eosinophils % 4.7 % (0.00-10.9); Hematocrit 33.1 VOL% (35.7-47.0); Hemoglobin 10.3 GM/DL (12.0-16.0); Immature Granulocytes % 0.2 %; Immature Granulocytes Absolute 0.01 #; Lymphocytes # 1.4 10*3/uL (1.4-4.0); Lymphocytes % 33.4 % (21.3-54.2); Mean Corpuscular HGB Conc 31.1 GM/DL (32-36); Mean Corpuscular Hemoglobin 30 PG (27-34); Mean Corpuscular Volume 94.8 FL (87-102); Mean Platelet Volume 9.5 FL (9.6-12.0); Monocytes # 0.7 10*3/uL (0.11-0.8); Monocytes % 16.4 % (1.7-12.7); Neutrophils # 1.9 10*3/uL (1.4-7.4); Neutrophils % 44.8 % (38.7-73.9); Platelet Count 132 T/CUMM (130-400); Red Blood Count 3.49 MC/CUMM (3.8-5.5); Red Cell Distribution Width 16.8 % (9.3-17.3); White Blood Count 4.2 T/CUMM (4-12)
[2018-09-17 05:26] LABS: Calcium 8.1 MG/DL (8.5-10.1); Osmolality,Calculated 286.8 MOS/KG (273-304); Potassium 3.6 MMOL/L (3.5-5.1)
[2018-09-17 05:52] LABS: Eosinophils 6 % (0-10); Lymphocytes 31 % (20-55); Segmented Neutrophils 55 % (50-85); Total Cells Counted 100
[2018-09-17 05:53] LABS: Platelet Estimate Adequate
[2018-09-17 05:54] LABS: Anisocytosis Slight; Hypochromasia Slight
[2018-09-17] MEDS: FUROSEMIDE 40 MG/4 ML VIAL IV SCH (10:11)
[2018-09-17] MEDS: POLYETHYLENE GLYCOL POWDER 17 GM PACK PO SCH (10:12)
[2018-09-17] MEDS: CHOLECALCIFEROL 1,000 UNIT TABLET PO SCH ×2 (10:17→10:21)
[2018-09-17] MEDS: METOPROLOL SUCCINATE XL 25 MG TABLET PO SCH ×2 (10:17→20:52)
[2018-09-17] MEDS: NITROFURANTOIN MACRO/MONO 100 MG CAPSULE PO SCH ×2 (10:18→20:52)
[2018-09-17] MEDS: ASCORBIC ACID 500 MG TABLET PO SCH ×2 (10:18→20:53)
[2018-09-17] MEDS: DOCUSATE SODIUM 100 MG CAPSULE PO SCH ×2 (10:19→20:53)
[2018-09-17] MEDS: PANTOPRAZOLE 40 MG TABLET PO SCH (10:19)
[2018-09-17] MEDS: ASPIRIN EC 81 MG TABLET PO SCH (10:19)
[2018-09-17] MEDS: AMIODARONE 200 MG TABLET PO SCH (10:20)
[2018-09-17] MEDS: MULTIVITAMIN (BEROCCA) TABLET PO SCH (10:20)
[2018-09-17] MEDS: POTASSIUM CHLORIDE 20 MEQ TABLET PO SCH (10:33)
[2018-09-17] MEDS: DIGOXIN 0.125 MG TABLET PO SCH (15:08)
[2018-09-17] MEDS ORDERED: ALBUTEROL/IPRATROPIUM 3 ML NEB RESP TX PRN (15:09)
[2018-09-17] MEDS: ROSUVASTATIN 20 MG TABLET PO SCH (20:52)
[2018-09-18 04:29] LABS: Basophils % 0.4 % (0.0-0.8); Eosinophils # 0.3 10*3/uL (0.0-0.87); Hematocrit 34.7 VOL% (35.7-47.0); Hemoglobin 10.6 GM/DL (12.0-16.0); Immature Granulocytes % 0.4 %; Immature Granulocytes Absolute 0.02 #; Lymphocytes # 1.4 10*3/uL (1.4-4.0); Lymphocytes % 31.2 % (21.3-54.2); Mean Corpuscular HGB Conc 30.5 GM/DL (32-36); Mean Corpuscular Hemoglobin 29 PG (27-34); Mean Corpuscular Volume 95.3 FL (87-102); Mean Platelet Volume 9.3 FL (9.6-12.0); Monocytes # 0.8 10*3/uL (0.11-0.8); Monocytes % 16.8 % (1.7-12.7); Neutrophils % 44.2 % (38.7-73.9); Platelet Count 130 T/CUMM (130-400); Red Blood Count 3.64 MC/CUMM (3.8-5.5); Red Cell Distribution Width 17.1 % (9.3-17.3); White Blood Count 4.5 T/CUMM (4-12)
[2018-09-18 05:01] LABS: Potassium 3.9 MMOL/L (3.5-5.1)
[2018-09-18 05:02] LABS: Calcium 7.9 MG/DL (8.5-10.1); Potassium 3.9 MMOL/L (3.5-5.1)
[2018-09-18 05:07] LABS: Anisocytosis 1+; Eosinophils 7 % (0-10); Hypochromasia 1+; Lymphocytes 31 % (20-55); Platelet Estimate Adequate; Segmented Neutrophils 58 % (50-85); Total Cells Counted 100
[2018-09-18] MEDS: FUROSEMIDE 40 MG/4 ML VIAL IV SCH (08:11)
[2018-09-18] MEDS: CHOLECALCIFEROL 1,000 UNIT TABLET PO SCH ×2 (08:34→08:41)
[2018-09-18] MEDS: METOPROLOL SUCCINATE XL 25 MG TABLET PO SCH (08:34)
[2018-09-18] MEDS: MULTIVITAMIN (BEROCCA) TABLET PO SCH (08:34)
[2018-09-18] MEDS: NITROFURANTOIN MACRO/MONO 100 MG CAPSULE PO SCH ×2 (08:34→20:40)
[2018-09-18] MEDS: POTASSIUM CHLORIDE 20 MEQ TABLET PO SCH (08:34)
[2018-09-18] MEDS: PANTOPRAZOLE 40 MG TABLET PO SCH (08:35)
[2018-09-18] MEDS: DOCUSATE SODIUM 100 MG CAPSULE PO SCH ×2 (08:35→20:40)
[2018-09-18] MEDS: ASCORBIC ACID 500 MG TABLET PO SCH ×2 (08:35→20:40)
[2018-09-18] MEDS: AMIODARONE 200 MG TABLET PO SCH (08:35)
[2018-09-18] MEDS: ASPIRIN EC 81 MG TABLET PO SCH (08:35)
[2018-09-18] MEDS: POLYETHYLENE GLYCOL POWDER 17 GM PACK PO SCH (08:35)
[2018-09-18] MEDS: DIGOXIN 0.125 MG TABLET PO SCH (13:38)
[2018-09-18] MEDS: ROSUVASTATIN 20 MG TABLET PO SCH (20:40)
[2018-09-19] MEDS: POLYETHYLENE GLYCOL POWDER 17 GM PACK PO SCH (09:11)
[2018-09-19] MEDS: CHOLECALCIFEROL 1,000 UNIT TABLET PO SCH ×2 (09:12→10:40)
[2018-09-19] MEDS: MULTIVITAMIN (BEROCCA) TABLET PO SCH (09:12)
[2018-09-19] MEDS: ASPIRIN EC 81 MG TABLET PO SCH (09:12)
[2018-09-19] MEDS: POTASSIUM CHLORIDE 20 MEQ TABLET PO SCH (09:13)
[2018-09-19] MEDS: NITROFURANTOIN MACRO/MONO 100 MG CAPSULE PO SCH ×2 (09:14→21:25)
[2018-09-19] MEDS: PANTOPRAZOLE 40 MG TABLET PO SCH (09:14)
[2018-09-19] MEDS: AMIODARONE 200 MG TABLET PO SCH (09:14)
[2018-09-19] MEDS: DOCUSATE SODIUM 100 MG CAPSULE PO SCH ×2 (09:14→21:25)
[2018-09-19] MEDS: ASCORBIC ACID 500 MG TABLET PO SCH ×2 (09:14→21:26)
[2018-09-19] MEDS: FUROSEMIDE 40 MG TABLET PO SCH (09:24)
[2018-09-19] MEDS: MIDODRINE 5 MG TABLET PO SCH ×3 (09:24→21:25)
[2018-09-19] MEDS: DIGOXIN 0.125 MG TABLET PO SCH (14:44)
[2018-09-19] MEDS: ROSUVASTATIN 20 MG TABLET PO SCH (21:25)
[2018-09-20 05:17] LABS: Basophils % 0.7 % (0.0-0.8); Eosinophils # 0.2 10*3/uL (0.0-0.87); Eosinophils % 3.6 % (0.00-10.9); Hematocrit 35.6 VOL% (35.7-47.0); Hemoglobin 11.2 GM/DL (12.0-16.0); Immature Granulocytes % 0.3 %; Immature Granulocytes Absolute 0.02 #; Lymphocytes # 2.1 10*3/uL (1.4-4.0); Lymphocytes % 35.8 % (21.3-54.2); Mean Corpuscular HGB Conc 31.5 GM/DL (32-36); Mean Corpuscular Hemoglobin 30 PG (27-34); Mean Corpuscular Volume 95.2 FL (87-102); Mean Platelet Volume 9.5 FL (9.6-12.0); Monocytes # 0.9 10*3/uL (0.11-0.8); Monocytes % 14.9 % (1.7-12.7); Neutrophils # 2.6 10*3/uL (1.4-7.4); Neutrophils % 44.7 % (38.7-73.9); Platelet Count 150 T/CUMM (130-400); Red Blood Count 3.74 MC/CUMM (3.8-5.5); Red Cell Distribution Width 16.8 % (9.3-17.3); White Blood Count 5.8 T/CUMM (4-12)
[2018-09-20 05:26] LABS: Calcium 8.3 MG/DL (8.5-10.1); Potassium 4.1 MMOL/L (3.5-5.1)
[2018-09-20] MEDS: CHOLECALCIFEROL 1,000 UNIT TABLET PO SCH (09:20)
[2018-09-20] MEDS: POLYETHYLENE GLYCOL POWDER 17 GM PACK PO SCH (09:20)
[2018-09-20] MEDS: POTASSIUM CHLORIDE 20 MEQ TABLET PO SCH (09:21)
[2018-09-20] MEDS: NITROFURANTOIN MACRO/MONO 100 MG CAPSULE PO SCH ×2 (09:21→22:20)
[2018-09-20] MEDS: ASCORBIC ACID 500 MG TABLET PO SCH ×2 (09:21→22:20)
[2018-09-20] MEDS: MIDODRINE 5 MG TABLET PO SCH ×3 (09:21→22:20)
[2018-09-20] MEDS: MULTIVITAMIN (BEROCCA) TABLET PO SCH (09:21)
[2018-09-20] MEDS: FUROSEMIDE 40 MG TABLET PO SCH (09:21)
[2018-09-20] MEDS: PANTOPRAZOLE 40 MG TABLET PO SCH (09:22)
[2018-09-20] MEDS: DOCUSATE SODIUM 100 MG CAPSULE PO SCH ×2 (09:22→22:20)
[2018-09-20] MEDS: ASPIRIN EC 81 MG TABLET PO SCH (09:22)
[2018-09-20] MEDS: AMIODARONE 200 MG TABLET PO SCH (09:22)
[2018-09-20] MEDS: DIGOXIN 0.125 MG TABLET PO SCH (12:44)
[2018-09-20] MEDS: ROSUVASTATIN 20 MG TABLET PO SCH (22:20)
[2018-09-21 04:31] LABS: Basophils % 0.4 % (0.0-0.8); Eosinophils # 0.2 10*3/uL (0.0-0.87); Eosinophils % 2.8 % (0.00-10.9); Hematocrit 36.4 VOL% (35.7-47.0); Hemoglobin 11.5 GM/DL (12.0-16.0); Immature Granulocytes % 0.3 %; Immature Granulocytes Absolute 0.02 #; Lymphocytes # 2.7 10*3/uL (1.4-4.0); Lymphocytes % 39.1 % (21.3-54.2); Mean Corpuscular HGB Conc 31.6 GM/DL (32-36); Mean Corpuscular Hemoglobin 30 PG (27-34); Mean Corpuscular Volume 93.6 FL (87-102); Mean Platelet Volume 9.3 FL (9.6-12.0); Monocytes % 14.2 % (1.7-12.7); Neutrophils # 2.9 10*3/uL (1.4-7.4); Neutrophils % 43.2 % (38.7-73.9); Platelet Count 152 T/CUMM (130-400); Red Blood Count 3.89 MC/CUMM (3.8-5.5); Red Cell Distribution Width 17.1 % (9.3-17.3); White Blood Count 6.8 T/CUMM (4-12)
[2018-09-21 04:58] LABS: Calcium 8.5 MG/DL (8.5-10.1); Osmolality,Calculated 278.4 MOS/KG (273-304)
[2018-09-21] MEDS: MULTIVITAMIN (BEROCCA) TABLET PO SCH (10:33)
[2018-09-21] MEDS: ASPIRIN EC 81 MG TABLET PO SCH (10:33)
[2018-09-21] MEDS: NITROFURANTOIN MACRO/MONO 100 MG CAPSULE PO SCH ×2 (10:34→22:12)
[2018-09-21] MEDS: AMIODARONE 200 MG TABLET PO SCH (10:34)
[2018-09-21] MEDS: POLYETHYLENE GLYCOL POWDER 17 GM PACK PO SCH (10:34)
[2018-09-21] MEDS: POTASSIUM CHLORIDE 20 MEQ TABLET PO SCH (10:34)
[2018-09-21] MEDS: DOCUSATE SODIUM 100 MG CAPSULE PO SCH ×3 (10:34→22:17)
[2018-09-21] MEDS: FUROSEMIDE 40 MG TABLET PO SCH (10:34)
[2018-09-21] MEDS: ASCORBIC ACID 500 MG TABLET PO SCH ×2 (10:35→22:12)
[2018-09-21] MEDS: PANTOPRAZOLE 40 MG TABLET PO SCH (10:35)
[2018-09-21] MEDS: MIDODRINE 5 MG TABLET PO SCH ×3 (10:35→22:12)
[2018-09-21] MEDS: CHOLECALCIFEROL 1,000 UNIT TABLET PO SCH (10:35)
[2018-09-21] MEDS: DIGOXIN 0.125 MG TABLET PO SCH (13:22)
[2018-09-21] MEDS: ROSUVASTATIN 20 MG TABLET PO SCH (22:12)
[2018-09-22 05:14] LABS: Basophils % 0.6 % (0.0-0.8); Eosinophils # 0.1 10*3/uL (0.0-0.87); Eosinophils % 2.3 % (0.00-10.9); Hematocrit 35.1 VOL% (35.7-47.0); Hemoglobin 11.1 GM/DL (12.0-16.0); Immature Granulocytes % 0.4 %; Immature Granulocytes Absolute 0.02 #; Lymphocytes # 1.9 10*3/uL (1.4-4.0); Lymphocytes % 36.1 % (21.3-54.2); Mean Corpuscular HGB Conc 31.6 GM/DL (32-36); Mean Corpuscular Hemoglobin 30 PG (27-34); Mean Corpuscular Volume 93.9 FL (87-102); Mean Platelet Volume 9.8 FL (9.6-12.0); Monocytes # 0.8 10*3/uL (0.11-0.8); Monocytes % 15.9 % (1.7-12.7); Neutrophils # 2.3 10*3/uL (1.4-7.4); Neutrophils % 44.7 % (38.7-73.9); Platelet Count 139 T/CUMM (130-400); Red Blood Count 3.74 MC/CUMM (3.8-5.5); Red Cell Distribution Width 17.2 % (9.3-17.3); White Blood Count 5.2 T/CUMM (4-12)
[2018-09-22 05:24] LABS: Calcium 8.1 MG/DL (8.5-10.1); Osmolality,Calculated 278.3 MOS/KG (273-304)
[2018-09-22 05:25] LABS: Calcium 8.3 MG/DL (8.5-10.1); Osmolality,Calculated 276.4 MOS/KG (273-304)
[2018-09-22 06:38] LABS: Band Neutrophils 3 % (0-10); Eosinophils 2 % (0-10); Lymphocytes 31 % (20-55); Segmented Neutrophils 55 % (50-85); Total Cells Counted 100
[2018-09-22 06:39] LABS: Anisocytosis 1+; Platelet Estimate Adequate
[2018-09-22] MEDS ORDERED: VANCOMYCIN INJ 1,000 MG in SODIUM CHLORIDE 0.9% 250 ML IV ONE (08:00)
[2018-09-22] MEDS ORDERED: diphenhydrAMINE 50 MG/1 ML VIAL IV ONE (08:00)
[2018-09-22] MEDS ORDERED: FAMOTIDINE 20 MG/2 ML VIAL IV ONE (08:00)
[2018-09-22] MEDS ORDERED: methylPREDNISolone SOD SUC 40 MG/1 ML VIAL IV ONE (08:00)
[2018-09-22] MEDS: NITROFURANTOIN MACRO/MONO 100 MG CAPSULE PO SCH ×2 (11:06→21:17)
[2018-09-22] MEDS: POTASSIUM CHLORIDE 20 MEQ TABLET PO SCH (11:06)
[2018-09-22] MEDS: DOCUSATE SODIUM 100 MG CAPSULE PO SCH ×2 (11:06→21:17)
[2018-09-22] MEDS: MULTIVITAMIN (BEROCCA) TABLET PO SCH (11:06)
[2018-09-22] MEDS: FUROSEMIDE 40 MG TABLET PO SCH (11:06)
[2018-09-22] MEDS: ASPIRIN EC 81 MG TABLET PO SCH (11:06)
[2018-09-22] MEDS: AMIODARONE 200 MG TABLET PO SCH (11:06)
[2018-09-22] MEDS: PANTOPRAZOLE 40 MG TABLET PO SCH (11:07)
[2018-09-22] MEDS: POLYETHYLENE GLYCOL POWDER 17 GM PACK PO SCH (11:07)
[2018-09-22] MEDS: ASCORBIC ACID 500 MG TABLET PO SCH ×2 (11:07→21:17)
[2018-09-22] MEDS: MIDODRINE 5 MG TABLET PO SCH ×3 (11:07→21:17)
[2018-09-22] MEDS: CHOLECALCIFEROL 1,000 UNIT TABLET PO SCH (11:07)
[2018-09-22] MEDS ORDERED: HEPARIN/NACL 0.9% 2 UNITS/ML 500 ML IV ONE ×2 (11:54)
[2018-09-22] MEDS ORDERED: LIDOCAINE 1% 20 ML VIAL ONE (11:54)
[2018-09-22] MEDS ORDERED: ACETAMINOPHEN 325 MG TABLET PO PRN (12:07)
[2018-09-22] MEDS ORDERED: fentaNYL 100 MCG/2 ML VIAL ONE (13:22)
[2018-09-22] MEDS ORDERED: PHENYLEPHRINE 1 MG/10 ML SYRINGE IV ONE (13:22)
[2018-09-22] MEDS ORDERED: PROPOFOL 200 MG/20 ML VIAL IV ONE (13:22)
[2018-09-22] MEDS ORDERED: SODIUM CHLORIDE 0.9% 250 ML IV ONE (13:23)
[2018-09-22] MEDS: ROSUVASTATIN 20 MG TABLET PO SCH (21:17)
[2018-09-23 04:47] LABS: Hematocrit 33.9 VOL% (35.7-47.0); Hemoglobin 10.7 GM/DL (12.0-16.0); Immature Granulocytes % 0.3 %; Immature Granulocytes Absolute 0.01 #; Lymphocytes # 0.8 10*3/uL (1.4-4.0); Lymphocytes % 21.4 % (21.3-54.2); Mean Corpuscular HGB Conc 31.6 GM/DL (32-36); Mean Corpuscular Hemoglobin 30 PG (27-34); Mean Platelet Volume 9.7 FL (9.6-12.0); Monocytes # 0.2 10*3/uL (0.11-0.8); Monocytes % 5.7 % (1.7-12.7); Neutrophils # 2.8 10*3/uL (1.4-7.4); Neutrophils % 72.6 % (38.7-73.9); Platelet Count 126 T/CUMM (130-400); Red Blood Count 3.57 MC/CUMM (3.8-5.5); Red Cell Distribution Width 16.6 % (9.3-17.3); White Blood Count 3.8 T/CUMM (4-12)
[2018-09-23 05:03] LABS: Calcium 8.2 MG/DL (8.5-10.1); Osmolality,Calculated 281.4 MOS/KG (273-304); Potassium 3.7 MMOL/L (3.5-5.1)
[2018-09-23] MEDS: POTASSIUM CHLORIDE 20 MEQ TABLET PO SCH (08:57)
[2018-09-23] MEDS: ASPIRIN EC 81 MG TABLET PO SCH (08:57)
[2018-09-23] MEDS: POLYETHYLENE GLYCOL POWDER 17 GM PACK PO SCH (08:57)
[2018-09-23] MEDS: MULTIVITAMIN (BEROCCA) TABLET PO SCH (08:58)
[2018-09-23] MEDS: NITROFURANTOIN MACRO/MONO 100 MG CAPSULE PO SCH (08:58)
[2018-09-23] MEDS: MIDODRINE 5 MG TABLET PO SCH (08:59)
[2018-09-23] MEDS: DOCUSATE SODIUM 100 MG CAPSULE PO SCH (08:59)
[2018-09-23] MEDS: CHOLECALCIFEROL 1,000 UNIT TABLET PO SCH (08:59)
[2018-09-23] MEDS: FUROSEMIDE 40 MG TABLET PO SCH (09:00)
[2018-09-23] MEDS: PANTOPRAZOLE 40 MG TABLET PO SCH (09:00)
[2018-09-23] MEDS: ASCORBIC ACID 500 MG TABLET PO SCH (09:01)
[2018-09-23 11:55] VITALS: BP 119/55
== END 2018-09-23 13:47 | disposition swing bed (61) | DRG 229 ==
LOC: EDBD → EDUNIT# → N.ED 21:00 → N.EDINP 22:56 → SUATTDRO 22:56 → N.TELEN 23:14
PROVIDERS: ADMIT Hospitalist; ATTEND Hospitalist
PROC: CLMICRA (2018-09-22 11:45)